=== PATIENT | female | born 1980 | race Caucasian/White ===

== ENCOUNTER 2023-05-31 09:58 | Emergency (ER) | payer OTHER ==
[~2023-05-31] VITALS: Ht 157.5 cm; Wt 52.2 kg
[2023-05-31] MEDS ORDERED: ACETAMINOPHEN ES 500 MG TABLET PO ONE (10:30)
[2023-05-31] MEDS ORDERED: IBUPROFEN 400 MG TABLET PO ONE (10:30)
[2023-05-31] MEDS ORDERED: ACETAMINOPHEN ES 500 MG TABLET ONE (10:46)
[2023-05-31] MEDS ORDERED: IBUPROFEN 400 MG TABLET ONE (10:46)
[2023-05-31] MEDS ORDERED: IBUP-1953 PO (13:09)
[2023-05-31 13:28] VITALS: BP 94/54; TEMP 99.1; O2SAT 99
== END 2023-05-31 13:29 | disposition home or self-care (01) ==
LOC: ER 10:05
DX: U07.1 COVID-19 (principal); Z60.2 Problems related to living alone; Z91.018 Allergy to other foods
CPT/HCPCS: 99283; 87426; 87804 ×2; C9803